=== PATIENT | male | born 1945 | race Caucasian/White ===

== ENCOUNTER 2017-05-20 09:45 | Emergency (ER) | payer MEDICARE ==
--- NOTE | 2017-05-20 11:02 | RADIOLOGY REPORT (SQ) ---
EXAM DESCRIPTION: HIP RIGHT AP/LATERAL COMPLETED DATE/TIME: 05/20/2017 10:36 am REASON FOR STUDY: hip pain after fall COMPARISON: None. NUMBER OF VIEWS: Two views. TECHNIQUE: AP pelvis and additional frog-leg view of the right hip. LIMITATIONS: None. FINDINGS: MINERALIZATION: Osteopenic RIGHT HIP: No fracture or dislocation. No significant joint space narrowing or bony spurring. No wo rrisome bone lesions. LEFT HIP: No fracture or dislocation. No significant joint space narrowing or bony spurring. No wor risome bone lesions. PUBIS AND ISCHIUM: No fracture. PELVIS: No fracture. SACRUM: No fracture or dislocation. No worrisome bone lesions. LOWER LUMBAR SPINE: Disc space loss of height at L3-4, L4-5, and L5-S1 SOFT TISSUES: No findings. OTHER: No other significant finding. IMPRESSION: No acute fracture. TECHNICAL DOCUMENTATION: JOB ID: [id number] [employer]- All Rights Reserved
[2017-05-20] MEDS ORDERED: LIDOCAINE 5% (700 MG) TRANSDERMAL ADH..PATCH TP ONE (11:05)
--- NOTE | 2017-05-20 11:43 | RADIOLOGY REPORT (SQ) ---
EXAM DESCRIPTION: CT PELVIS WITHOUT COMPLETED DATE/TIME: 05/20/2017 11:22 am REASON FOR STUDY: right hip pain COMPARISON: Right hip plain films 05/20/2017 TECHNIQUE: CT scan of the pelvis performed without intravenous or oral contrast. Images reviewed wi th soft tissue and bone windows. Reconstructed coronal and sagittal MPR images reviewed. All images stored on PACS. All CT scanners at this facility use dose modulation, iterative reconstruction, and/or weight based d osing when appropriate to reduce radiation dose to as low as reasonably achievable (ALARA). [facility]: Dose Right [facility]: CareDose [facility]: Dose Right [facility]: Teradose 4D [facility]: Monitoring Division RADIATION DOSE: 12.7 mGy. LIMITATIONS: None. FINDINGS: PELVIC BONES: No acute fracture. No worrisome bone lesions. VISUALIZED SPINE: Degenerative convex leftward lumbar curvature due to asymmetric right-sided disc sp morales loss of height at L3-4, L4-5, and L5-S1. There is at least moderate right L4-5 and L5-S1 foramin al narrowing. HIPS: No acute fracture or dislocation. No worrisome bone lesions. PELVIC SOFT TISSUES: No significant findings. EXTRAPELVIC SOFT TISSUES: No significant findings. OTHER: No other significant finding. IMPRESSION: No acute fracture. Degenerative disc changes lower lumbar spine TECHNICAL DOCUMENTATION: JOB ID: [id number] Quality ID # [id number]: Final reports with documentation of one or more dose reduction techniques (e.g., Au tomated exposure control, adjustment of the mA and/or kV according to patient size, use of iterative reconstruction technique) 2010 [employer]- All Rights Reserved
--- NOTE | 2017-05-20 12:03 | ER Document Report ---
ED General - General Chief Complaint: Fall Injury Stated Complaint: FALL HIP PAIN Time Seen by Provider: 05/20/17 09:52 TRAVEL OUTSIDE OF THE [place] IN LAST 30 DAYS: No - HPI Patient complains to provider of: Fall right hip pain Notes: Patient coming in for evaluation of fall right hip pain patient's fall multiple times in the last 3 days states he continues to have right hip pain today requesting evaluation. Family at bedside the patient does have frequent falls and intermittently uses his walker as he should. No recent falls this a.m. denies any head trauma. Patient has a history of Parkinson's disease has 2 stimulators in the upper chest. Patient otherwise denies any other issues. Patient is able to ambulate and stand on his leg when he states he stands when the pain is worse. Patient is able to get the range of motion of his leg. - Related Data Allergies/Adverse Reactions: levofloxacin [From Levaquin] Allergy (Verified 05/16/16 12:45) Past Medical History - Social History Smoking Status: Unknown if Ever Smoked Family History: Reviewed & Not Pertinent Patient has suicidal ideation: No Patient has homicidal ideation: No - Past Medical History Cardiac Medical History: Reports: Hx Heart Attack - 1977, Hx Hypercholesterolemia, Hx Hypertension Renal/ Medical History: Denies: Hx Peritoneal Dialysis Past Surgical History: Reports: Hx Cardiac Catheterization - stents x4, Hx Coronary Stent - x4, Hx Neurologic Surgery - Brain stimulator secondary to Parkinson's Review of Systems - Review of Systems Constitutional: No symptoms reported EENT: No symptoms reported Cardiovascular: No symptoms reported Respiratory: No symptoms reported Gastrointestinal: No symptoms reported Genitourinary: No symptoms reported Male Genitourinary: No symptoms reported Musculoskeletal: Other - Hip pain Skin: No symptoms reported Hematologic/Lymphatic: No symptoms reported Neurological/Psychological: No symptoms reported -: Yes All other systems reviewed and negative Physical Exam - Vital signs Vitals: Resp Pulse Ox 20 94 05/20/17 09:56 05/20/17 09:56 Interpretation: Normal - General General appearance: Appears well, Alert - HEENT Head: Normocephalic, Atraumatic Eyes: Normal Pupils: PERRL - Respiratory Respiratory status: No respiratory distress Chest status: Nontender Breath sounds: Normal Chest palpation: Normal - Cardiovascular Rhythm: Regular Heart sounds: Normal auscultation Murmur: No - Abdominal Inspection: Normal Distension: No distension Bowel sounds: Normal Tenderness: Nontender Organomegaly: No organomegaly - Back Back: Normal, Nontender - Extremities General upper extremity: Normal inspection, Nontender, Normal color, Normal ROM , Normal temperature General lower extremity: Normal inspection, Nontender, Normal color, Normal ROM , Normal temperature - Neurological Neuro grossly intact: Yes Cognition: Normal Orientation: AAOx4 Dexter Coma Scale Eye Opening: Spontaneous Dexter Coma Scale Verbal: Oriented Dexter Coma Scale Motor: Obeys Commands Dexter Coma Scale Total: 15 Speech: Normal Motor strength normal: LUE, RUE, LLE, RLE Sensory: Normal - Psychological Associated symptoms: Normal affect, Normal mood - Skin Skin Temperature: Warm Skin Moisture: Dry Skin Color: Normal Course - Re-evaluation Re-evalutation: 05/20/17 17:[address] X-[address] scan were negative for any signs of acute fracture feel patient is stable to be discharged home this time recommended taking Tylenol for pain control also [id number]-hoofyld lidocaine cream patient is to follow-up primary care physician for reevaluation I did place the patient's information with our criminal justice social worker for further evaluation per - Vital Signs Vital signs: Temp Pulse Resp BP Pulse Ox 23 H 130/78 H 92 05/20/17 12:00 05/20/17 11:01 05/20/17 12:00 Discharge - Discharge Clinical Impression: Acute right hip pain Condition: Good Disposition: HOME, SELF-CARE Instructions: Arthralgia ([facility]) Additional Instructions: Your seen today for right hip painAt this time your x-ray and CT scan did not show any signs of acute fracture. More likely there is another muscle skeletal calls for your hip pain. Please follow-up with your primary care physician return to the ER symptoms worsen. I did notify her criminal justice social worker who will contact you and we will assess for needs at home how we can further assist you in taking care of yourself.
[2017-05-20 12:46] VITALS: BP 130/78
== END 2017-05-20 12:55 | disposition home or self-care (01) ==
LOC: ER 09:45
DX: M25.551 Pain in right hip (principal); W19.XXXA Unspecified fall, initial encounter; R29.6 Repeated falls; G20 Parkinson's disease; Z96.89 Presence of other specified functional implants; Z95.5 Presence of coronary angioplasty implant and graft; Z88.1 Allergy status to other antibiotic agents; I10 Essential (primary) hypertension; I25.2 Old myocardial infarction
CPT/HCPCS: 72192; 99284